=== PATIENT | female | born 1965 | race Caucasian/White ===

== ENCOUNTER 2022-04-15 14:56 | Outpatient (CLI) | payer OTHER, SELFPAY | END 2022-04-15 14:57 | disposition home or self-care (01) | LOC: INJ CL 14:58 | PROVIDERS: Visit Provider Family Medicine | DX: M17.11 Unilateral primary osteoarthritis, right knee (principal); M25.561 Pain in right knee | CPT/HCPCS: 64454 ==

== ENCOUNTER 2022-05-06 13:04 | Outpatient (CLI) | payer OTHER, SELFPAY | END 2022-05-06 13:05 | disposition home or self-care (01) | PROVIDERS: Visit Provider Family Medicine | DX: M17.11 Unilateral primary osteoarthritis, right knee (principal); M25.561 Pain in right knee; G89.29 Other chronic pain | CPT/HCPCS: 64624; J2250; J3010 ==

== ENCOUNTER 2022-05-27 14:40 | Outpatient (CLI) | payer OTHER, SELFPAY | END 2022-05-27 14:41 | disposition home or self-care (01) | PROVIDERS: PCP Family Medicine; Visit Provider Family Medicine | DX: M17.12 Unilateral primary osteoarthritis, left knee (principal); M25.562 Pain in left knee | CPT/HCPCS: 64454 ==

== ENCOUNTER 2022-06-09 15:18 | Outpatient (REF) | payer OTHER, SELFPAY ==
[2022-06-09 17:43] LABS: SARS PCR* Negative SARS-CoV-2 (Negative)
== END 2022-06-09 15:19 | disposition home or self-care (01) ==
LOC: LAB 15:18
PROVIDERS: PCP Family Medicine; Visit Provider Family Medicine
DX: Z11.52 Encounter for screening for COVID-19 (principal)
CPT/HCPCS: 87635

== ENCOUNTER 2022-06-13 08:48 | Outpatient (CLI) | payer OTHER, SELFPAY | END 2022-06-13 08:49 | disposition home or self-care (01) | LOC: INJ CL 08:49 | PROVIDERS: PCP Family Medicine; Visit Provider Family Medicine | DX: M17.12 Unilateral primary osteoarthritis, left knee (principal); M25.562 Pain in left knee | CPT/HCPCS: 64624; J2250; J3010 ==